=== PATIENT | female | born 1950 | race Caucasian/White ===

== ENCOUNTER 2023-06-15 10:34 | Day surgery (SDC) | payer MEDICARE, OTHER ==
[~2023-06-15 10:34] MED LIST: Lactated Ringers 1,000 ML IV SCH
[2023-06-15] MEDS ORDERED: fentaNYL 100 MCG/2 ML SDV ONE (12:01)
[2023-06-15] MEDS ORDERED: Propofol 200 MG/20 ML SDV ONE ×2 (12:01→12:27)
[2023-06-15 12:48] VITALS: PULSE 67
[2023-06-15 12:59] VITALS: BP 98/42
== END 2023-06-15 13:43 | disposition home or self-care (01) ==
LOC: VM.SDS 10:34
PROVIDERS: ATTEND Surgery
DX: Z12.11 Encounter for screening for malignant neoplasm of colon (principal); D12.6 Benign neoplasm of colon, unspecified; I12.9 Hypertensive chronic kidney disease with stage 1 through stage 4 chronic kidney disease, or unspecified chronic kidney disease; E11.22 Type 2 diabetes mellitus with diabetic chronic kidney disease; N18.32 Chronic kidney disease, stage 3b; J44.9 Chronic obstructive pulmonary disease, unspecified; K21.9 Gastro-esophageal reflux disease without esophagitis; E03.9 Hypothyroidism, unspecified; E78.5 Hyperlipidemia, unspecified; E79.0 Hyperuricemia without signs of inflammatory arthritis and tophaceous disease; Z79.899 Other long term (current) drug therapy; Z88.8 Allergy status to other drugs, medicaments and biological substances
CPT/HCPCS: 00812; 45380; 88305; J2704; J3010; J7120